=== PATIENT | male | born 1940 | race Caucasian/White ===

== ENCOUNTER 2016-08-21 12:48 | Inpatient (IN) | payer OTHER, SELFPAY ==
--- NOTE | ~2016-08-21 | CN ---
Consultation Report [facility] [address] [place]. [address] NAME: LYNNE REED : 40 STATUS : ADM IN [facility]#: [id number] AGE: 76 ADM/REG DATE : 08/21/16 MR#: [id number] REPORT SERV DATE: 08/23/16 DICTATED BY: TIFFANIE PITTMAN DATE: 08/22/16 REPORT STATUS : Draft TRANSCRIBED BY: MODL DATE: 08/22/16 CONSULTATION REPORT DATE OF CONSULTATION: Dear Dr. Desouza: Thank you for requesting my opinion regarding evaluation and management of Mr. Lynne Reed who has acute hypoxic hypercapnic respiratory failure and acute exacerbation of COPD. Mr. Reed is a 76-year-old gentleman with a significant past medical history of coronary artery disease, congestive heart failure, chronic kidney disease, and COPD, who presented to [facility] with a several week history of worsening shortness of breath, dyspnea, on exertion, chest tightness, productive cough with yellow to white sputum and a fever of 100.4 degrees. He presented to [facility] and then transferred here to [facility] for further care. On his clinical course, he has been complicated by acute on chronic renal failure and volume overload. Mr. Reed is unable to provide a history due to his altered mental status from hypercapnic hypoxic respiratory failure. REVIEW OF SYSTEMS: Unable to obtain due to patient's altered mental status. ALLERGIES: NO KNOWN DRUG ALLERGIES. HOME MEDICATIONS: Reviewed and located in the paper chart. PAST MEDICAL HISTORY: 1. Diabetes. 2. Hypertension. 3. Hyperlipidemia. 4. Former tobacco abuse, quit in 1996, has smoked since he was a child. 5. Emphysema. 6. Anemia. 7. Chronic kidney disease. PAST SURGICAL HISTORY: 1. Coronary artery bypass graft surgery by Dr. Hernandes at [place] on 11/25/2007. 2. [employer] pacemaker placed in 2010. 3. Gallbladder surgery in 2011. 4. Cataract surgery in 2005. 5. Appendectomy. SOCIAL HISTORY: The patient lives in [place]. He has been for 57 years. Four children alive and well. He is retired. His smoking history is long, when he was child and quit in 1996. There is no history of alcohol or illicit drug abuse. Consultation Report [place] [id number] [place]. [address] NAME: LYNNE REED : 40 STATUS : ADM IN PAT#: [id number] AGE: 76 ADM/REG DATE : 08/21/16 MR#: [id number] REPORT SERV DATE: 08/23/16 DICTATED BY: TIFFANIE PITTMAN DATE: 08/22/16 REPORT STATUS : Draft TRANSCRIBED BY: MODL DATE: 08/22/16 FAMILY HISTORY: Coronary artery disease. PHYSICAL EXAMINATION: Vital SIGNS: Afebrile, T current 97.4, pulse of 64, respiratory rate of 19, 3 L on BiPAP 94%. Blood pressure 153/67. GENERAL: Altered mental status and mild respiratory distress. Still on BiPAP but appears to be maintaining excellent volumes. HEENT: Normocephalic, atraumatic. Pupils are equal, round, and reactive to light and accommodation. Posterior oropharynx is clear. NECK: No JVD. No LAD. Trachea midline. CARDIOVASCULAR: Regular rate and rhythm. S1, S2 present. LUNGS: Diminished breath sounds bilaterally. ABDOMEN: Nontender, nondistended. Soft. Positive bowel sounds. EXTREMITIES: No clubbing, cyanosis, or edema. SKIN: No new rashes, lesions, or ulcers. PSYCHIATRIC: Unable to assess due to patient's altered mental status. NEUROLOGIC: Moving all four extremities. LABORATORY DATA: White count of 7.8, hemoglobin of 11, and platelet count of 143. Procalcitonin of 0.73. Uremia with a BUN of 111, creatinine of 4.11, pH is 7.16, PaCO2 of 76, PaO2 of 72. IMAGING: Chest x-ray on 08/21/2016 was personally reviewed by me. Mild cardiomegaly with CABG pacemaker. No acute process demonstrated. ASSESSMENT AND PLAN: Mr. Lynne Reed is an unfortunate 76-year-old gentleman with significant past medical history of coronary artery disease, status post bypass, heavy tobacco abuse, and clinical chronic obstructive pulmonary disease who presents to [facility] with several weeks history of worsening shortness of breath. The patient was evaluated in [place] and transferred and found to have severe hypoxic hypercapnic respiratory failure requiring continuous BiPAP and acute on chronic kidney failure with profound uremia and a creatinine now at 4.11. The patient's hypercapnic hypoxic respiratory failure is likely multifactorial due to the followin. Acute exacerbation of chronic obstructive pulmonary disease. 2. Acute on chronic kidney disease. 3. Uremia. 4. Metabolic encephalopathy. 5. Low grade heart failure. RECOMMENDATIONS: Summary of my recommendations are as follows: 1. Transfer x2. 2. Head of bed greater than 30. 3. DC Dulera. Consultation Report [place] [facility] [address] [place]. [address] NAME: LYNNE REED : 40 STATUS : ADM IN PAT#: [id number] AGE: 76 ADM/REG DATE : 08/21/16 MR#: [id number] REPORT SERV DATE: 08/23/16 DICTATED BY: TIFFANIE PITTMAN DATE: 08/22/16 REPORT STATUS : Draft TRANSCRIBED BY: JAEL DATE: 08/22/16 4. Brovana 15 mcg nebulization b.i.d. 5. Pulmicort 1 mg nebulization b.i.d. 6. DuoNeb q.4 h. scheduled and q.2h p.r.n. 7. Check ABG. 8. DC Dilaudid. 9. Sputum smear and culture. 10.Precedex to RASS of 0 p.r.n. for agitation. 11.Check chest x-ray AP stat. 12.If the patient fails BiPAP therapy, patient will likely need to be on critical care support and intubation. Thank you for allowing me to participate in Mr. Poli archer. BLU/JAEL Tiffanie Pittman M.D. / [id number] CC: Sammi Nettles
--- NOTE | ~2016-08-21 | CN ---
Consultation Report [facility] [address] [place]. [address] NAME: NOHEMI REED : 40 STATUS : ADM IN [facility]#: [id number] AGE: 76 ADM/REG DATE : 08/21/16 MR#: [id number] REPORT SERV DATE: 08/21/16 DICTATED BY: DATE: REPORT STATUS : Draft TRANSCRIBED BY: MODL DATE: 08/21/16 DATE OF CONSULTATION: REASON FOR CONSULTATION: Acute kidney injury. HISTORY OF PRESENT ILLNESS: Mr. Reed is a 76-year-old white male with known CKD, stage 3, followed by Dr. Winter of [facility], and it looks as though he has a baseline creatinine around 2. Per the records in the chart, in May of 2016, he saw his PCP and his creatinine was 2. He had recently been in the hospital and had to be diuresed at that point. He presented to the hospital at [facility] two days ago with increasing shortness of breath, wheezing, congestion per the at bedside. He was having fevers and some sputum production without color. No increase in his edema. In fact, he had lost some weight recently. He had been having some urinary difficulties, and he does have BPH, has not seen a urologist, has urinary hesitancy. No significant swelling. Shortness of breath is no better. Dyspnea on exertion no better. No chest pain, tightness, or pressure. He was transferred here for worsening renal function. He was diuresed in the hospital at [facility]. Creatinine today is at 3.87 with BUN of 103 and sodium is down to 129. Chest x-ray is negative, but on physical exam, he has significant wheezing with bilateral crackles. PAST MEDICAL HISTORY: CKD stage 3; diabetes with neuropathy; hypertension; BPH; coronary artery disease, status post bypass in 2007 at [place]; anemia; hyperlipidemia; hypothyroidism; degenerative joint disease; gout; osteoarthritis; ventricular tachycardia with AICD placement. FAMILY MEDICAL HISTORY: No end-stage renal disease. SOCIAL HISTORY: He is , lives with . Quit using cigarettes in 1996. No alcohol or illicit drug use. ALLERGIES: NONE. MEDICATIONS: I do not see his current medicine list. I did review the list from his physician's office from May though and he had been on Lasix. They had taken him off metolazone. REVIEW OF SYSTEMS: A 12-point review of systems was obtained and negative with the exception of that in the HPI. PHYSICAL EXAMINATION: VITAL SIGNS: Temp 98.6, blood pressure 173/71, pulse 65, respiratory rate 20, and O2 saturation is 97%. GENERAL: This is an ill-appearing elderly white male. He is awake, alert, and oriented, answers questions appropriately. He is hard of hearing. Consultation Report [address] [place]. [address] NAME: NOHEMI REED : 40 STATUS : ADM IN PAT#: [id number] AGE: 76 ADM/REG DATE : 08/21/16 MR#: [id number] REPORT SERV DATE: 08/21/16 DICTATED BY: DATE: REPORT STATUS : Draft TRANSCRIBED BY: JAEL DATE: 08/21/16 HEENT: Normocephalic and atraumatic. Conjunctivae clear. Sclerae anicteric. Pupils are equal and round. Oral mucosa is moist. NECK: Supple. Carotids are brisk. Neck veins flat. No lymphadenopathy. LUNGS: Respirations are even, slightly labored. He has bilateral wheezing with crackles also noted. HEART: Rate is regular. I did not hear any murmur, rub, or gallop. ABDOMEN: Soft and nontender. Bowel sounds active. No masses. No hepatosplenomegaly. No bruits. No CVA tenderness. BACK: Within normal limits extremities. No edema, cyanosis, or clubbing. SKIN: Warm, dry, and intact. No unusual rash or skin lesions. NEURO EXAM: No focal deficits. Mood and affect, pleasant and appropriate. PERTINENT LABS AND X-RAYS: Urinalysis: 100 mg/dL of protein on dipstick, moderate amount of blood. On microscopic exam, he has 25 red blood cells per high-powered field. Lactate 0.6, BNP is 581. Sodium 129, potassium 5.2, chloride 96, CO2 of 24, BUN of 103, creatinine of 3.87. Calcium of 8.2, albumin of 3.1, and LFTs are unremarkable. Troponin 0.04. WBC 6.2, H and H of 11 and 34, and platelets 142,000. IMPRESSION: 1. Acute kidney injury. 2. Chronic kidney disease, stage 3-4. 3. Chronic obstructive pulmonary disease exacerbation. 4. Acute respiratory failure. 5. Diabetes. 6. Hypertension. 7. Hyponatremia. PLAN/RECOMMENDATIONS: Acute kidney injury in setting of probable acute exacerbation of COPD, now with acute respiratory failure. He is hypoxic and hypercarbic. May need to be put on BiPAP. Would not give IV fluids with current respiratory status. I do think he is probably a little intravascularly depleted. We will let him drink IV fluids and not give any. Follow I's and O's and labs and follow along with you. Thank you for the consultation. CELINE/JAEL ANNE MARIE Parsons / [id number]
--- NOTE | ~2016-08-21 | HP ---
History And Physical [place] [id number] [place]. [address] NAME: NOHEMI REED : 40 STATUS : ADM IN [facility]#: [id number] AGE: 76 ADM/REG DATE : 08/21/16 MR#: [id number] REPORT SERV DATE: 08/22/16 DICTATED BY: KELBY CUNNINGHAM DATE: 08/21/16 REPORT STATUS : Draft TRANSCRIBED BY: MODYeni DATE: 08/21/16 DATE OF ADMISSION: 08/21/2016 HISTORY OF PRESENT ILLNESS: Mr. Reed is a 76-year-old white male patient who was transferred here from [facility]. When I spoke with the physician at [facility], Dr. Carvajal, who saw him at [place] today, tells me that this is a 76-year-old white male patient who was admitted for shortness of breath. His chest x-ray did not show any acute infiltrate even though there was a questionable left lower lobe pneumonia. The patient has been treated with antibiotics, but in the meantime, the patient also developed worsening renal function with a creatinine of 3.1 and hyponatremia with a sodium of 127 that was noted today. Hence, the patient is being transferred here for worsening renal function/MIKE. Dr. Carvajal also told me that the patient has a pacemaker placed for probably a sick sinus syndrome and is being followed by Dr. Morris. When the patient arrived at bedside, I examined the patient and he appears to be mildly lethargic even though he is able to answer most of my questions fairly appropriately. Even though he is lethargic, he is oriented with place and person even though he is mildly confused with time. His skin and mucous membranes appear a little dry. His vital signs upon arrival show that his blood pressure is 131/60, pulse is 65 per minute, temperature afebrile, and oxygen saturation 92% on 3 L. Hence, most of the history was obtained some from the patient and some from his . SOCIAL HISTORY: The patient does not smoke or drink or do any drugs. He lives with his . PAST MEDICAL HISTORY: Significant for hypertension, chronic kidney disease, COPD, hypothyroidism, GERD, unspecified cardiac arrhythmia, diabetes which is controlled with medications by mouth, mild COPD, and hypercholesterolemia. PAST SURGICAL HISTORY: Includes CABG in 2007 and a pacer/defibrillator placed in 2010. The patient has also had a laparoscopic cholecystectomy before. ALLERGIES: THE PATIENT IS ALLERGIC TO LATEX. HOME MEDICATIONS: Include Xanax 0.5 mg p.o. b.i.d., Prilosec 20 mg p.o. daily, levothyroxine 25 mcg p.o. daily, amlodipine 10 mg p.o. daily, mexiletine 150 mg p.o. b.i.d., aspirin 81 mg once a day, Lasix 40 mg once a day, Lipitor 20 mg once a day, [place] 5/325 one p.o. b.i.d. p.r.n., glipizide 5 mg p.o. b.i.d., fenofibrate 160 mg p.o. daily, Coreg 12.5 mg p.o. b.i.d., Augmentin that was supposed to be taken all the way until 08/22/2016, and albuterol sulfate p.r.n. for shortness of breath for his COPD. PHYSICAL EXAMINATION: History And Physical [address] [address] NAME: NOHEMI REED : 40 STATUS : ADM IN [facility]#: [id number] AGE: 76 ADM/REG DATE : 08/21/16 MR#: [id number] REPORT SERV DATE: 08/22/16 DICTATED BY: KELBY CUNNINGHAM DATE: 08/21/16 REPORT STATUS : Draft TRANSCRIBED BY: JAEL DATE: 08/21/16 GENERAL: The patient is mildly lethargic, but arousable and is able to answer most questions appropriately. He, however, appears very tired and is not tachypneic, but does have prolonged expiration with audible wheezing. VITAL SIGNS: Blood pressure is 131/60, pulse is 65 per minute, temperature afebrile, and oxygen saturation 92% on 3 L. HEENT: Skin and mucous membranes appear a little dry. NECK: There is no JVD. CARDIOVASCULAR: S1, S2 appreciated. At this time, I did appreciate sinus rhythm. There may be a few PVCs or extra beats that I noted in between S1, S2. RESPIRATORY: The patient has diffuse rhonchi appreciated all over the lung scott. I could not appreciate any significant crackles in the upper lobes, but there are some crackles appreciated in the lower lobes of the lung scott. These do not clear with coughing. ABDOMEN: Soft, nontender, nondistended. Bowel sounds are appreciated. No hepatosplenomegaly noted. EXTREMITIES: There is no pedal edema. Pedal pulses are felt in both lower extremities. NEUROLOGICAL: No acute deficits. MUSCULOSKELETAL: No acute swelling or redness in any of the major joints. PSYCHIATRIC: Mild lethargy noted because of his above conditions. LABORATORY DATA: I do not have absolutely any labs on this patient as no records from [place] have been arrived yet with the patient. So I had to order all labs stat and here are the labs that I have and I have ordered stat. His CBC shows a WBC count of 6.2, hemoglobin 11.3, hematocrit 34.3, platelet count of 142. His BNP is elevated at 581, lactate is normal at 0.6. Comprehensive metabolic profile shows a sodium of 129 which is low as the physician mentioned at [place] today, potassium is 5.2, BUN is 103, creatinine is 3.8, much higher than what was mentioned to me this morning. Glucose is 258. LFTs are normal. Troponin I is 0.04 which is normal. Procalcitonin is 0.4. Urinalysis shows hazy urine and essentially with moderate amount of blood, but no definitive infection. King catheter has been inserted and urine was obtained after insertion of King, so this could be trauma from King. I ordered a King catheter placement as the patient does have difficulty urinating probably from BPH and also we need strict ins and outs in this patient. Chest x-ray portable shows that he has mild cardiomegaly with CABG and pacer in place. No acute process otherwise demonstrated radiographically. Arterial blood gases show a pH of 7.1, a pCO2 of 62, PO2 of 63, bicarb 23.4, O2 sats 91.2 on 32% inspired oxygen or 4 L of oxygen. ASSESSMENT: My assessment in this gentleman is: 1. Acute exacerbation of chronic obstructive pulmonary disease. 2. Volume overload, probably secondary to acute kidney injury on chronic kidney disease, stage 4. 3. Diabetes mellitus. 4. Severe metabolic acidosis, probably secondary to acute kidney injury. 5. Other problems that are stable include coronary artery disease, status post coronary artery bypass grafting. History And Physical [place] [id number] [place]. [address] NAME: NOHEMI REED : 40 STATUS : ADM IN PAT#: [id number] AGE: 76 ADM/REG DATE : 08/21/16 MR#: [id number] REPORT SERV DATE: 08/22/16 DICTATED BY: KELBY CUNNINGHAM DATE: 08/21/16 REPORT STATUS : Draft TRANSCRIBED BY: MODL DATE: 08/21/16 6. Status post pacer placement. 7. Diabetes mellitus. 8. Chronic kidney disease, stage 3 to 4. PLAN: 1. To admit the patient to [address] [place] [address] under cardiac telemetry and obtain both Renal consult today and Cardiology consult today. 2. I will go ahead and start him on IV Ringer's lactate and given an amp of bicarb right now. We will give supportive treatment with oxygen. We will also give him breathing treatments with DuoNebs every four hours. 3. We will start him on IV Levaquin for now and watch to see later on. Levaquin can probably be discontinued within 24 to 48 hours if he stabilizes better. 4. We will give him just one dose of IV Bumex 1 mg and then let Nephrology handle further fluid balance in this patient. I have asked the nurse to insert a King catheter in this patient to measure strict input and output, and further recommendations per Cardiology and Nephrology. OPAL/JAEL Kelby Cunningham M.D. / [id number] CC: Kelby Cunningham M.D.
--- NOTE | ~2016-08-21 | DS ---
Discharge Summary [facility] [address] [place]. [address] NAME: NOHEMI REED : 40 STATUS : ADM IN [facility]#: [id number] AGE: 76 ADM/REG DATE : 08/21/16 MR#: [id number] REPORT SERV DATE: 08/29/16 DICTATED BY: HANDY DESOUZA DATE: 08/28/16 REPORT STATUS : Draft TRANSCRIBED BY: MODL DATE: 08/28/16 ADMISSION DATE: 08/21/2016 DISCHARGE DATE: 08/28/2016 CONSULTANTS: 1. Pancho Cazares M.D., Cardiology. 2. Tho Reyes M.D., Pulmonary. 3. Mike Cantrell M.D., Nephrology. DISCHARGE DIAGNOSES: 1. Acute on chronic hypercapnic hypoxic respiratory failure. 2. Acute exacerbation of chronic obstructive pulmonary disease, suspected viral infection. 3. Acute kidney injury superimposed on stage 4 chronic kidney disease and requiring temporary hemodialysis. 4. Hypertension. 5. Sick sinus syndrome with history of ventricular tachycardia and automatic implantable cardioverter-defibrillator pacemaker. 6. Coronary artery disease with bypass in 2007 with current left ventricular ejection fraction of 50% with mild diastolic dysfunction. Mild LVH. Mild dilatation of the right ventricle and decreased right ventricular ejection fraction with aortic valvular sclerosis, but no stenosis. 7. Transient thrombocytopenia, resolved. 8. Hypothyroidism. 9. History of B12 deficiency. 10.Anemia of chronic disease. 11.History of gout. 12.Generalized anxiety disorder. 13.Gastroesophageal reflux disease. 14.Mildly diminished hearing. HISTORY: This patient was recently in the hospital at [facility] with report of pneumonia, went home and went back to [facility] approximately 08/18/2016, was diagnosed with strep throat and given an antibiotic but still had weakness, shortness of breath, was readmitted, had report of cough and yellow sputum with low-grade fever, and the patient then was requested for transfer to [facility]. The patient also was noted to have acute kidney injury while he was at [facility]. The patient was transferred to the cardiac telemetry floor. Imaging on admission included a chest x-ray showing mild cardiomegaly with evidence of previous bypass and pacer device. Echocardiogram on 08/21/2016 showed left atrial size 4.5 cm, left ventricular ejection fraction of 50%, mild LVH, moderate diastolic dysfunction, mild right ventricular enlargement with decreased right ventricular ejection fraction. Aortic valvular sclerosis without stenosis. Cardiac troponin was normal. B-natriuretic peptide was 581.1. Because of his acute kidney injury, the patient also had a renal arterial Doppler showing some right kidney renal artery stenosis. Renal ultrasound, otherwise, did not show any obstructive changes. The patient had some asymmetric atrophy suggesting old pyelonephrotic scarring; Discharge Summary [address] [address] NAME: NOHEMI REED : 40 STATUS : ADM IN PAT#: [id number] AGE: 76 ADM/REG DATE : 08/21/16 MR#: [id number] REPORT SERV DATE: 08/29/16 DICTATED BY: HANDY DESOUZA DATE: 08/28/16 REPORT STATUS : Draft TRANSCRIBED BY: JAEL DATE: 08/28/16 nonobstructive kidney stone, left kidney and right kidney; cyst in the inferior pole left kidney that looked benign. The patient was given some IV fluids cautiously, but his renal function did not improve, so we asked Nephrology. Dr. Mike Cantrell saw the patient. His Cardiology team, Dr. Cazares and associates saw the patient and they had his pacer ICD interrogated, no particular problems noted with device. The patient had urine strep and Legionella antigens that were nonreactive and influenza A and B were negative. Procalcitonin remained in the normal range, not elevated at all. The patient was given steroids. The patient had gradually worsening respiratory discomfort remaining hypercapnic and required oxygen supplementation. We, therefore, put him on BiPAP 16/5 with FiO2 of 32% and changes steroids to parenteral. Pulmonary, Dr. Reyes, saw the patient, had him on Brovana and Pulmicort. As the patient's renal function continued to worsen, his potassium climbed up to 5.8. His highest creatinine was 4.12. I gave him sodium bicarbonate, calcium gluconate, and Kayexalate for his potassium and Nephrology felt that he needed to have PermCath and dialysis. The patient underwent dialysis, had significant amount of fluid removed. Had a very dramatic improvement, thereafter. Did not need any more dialysis and his renal function recovered so that by discharge, his creatinine is 1.58. His PermCath was removed from his right chest. He is ambulatory. He is off oxygen. Blood cultures with no growth. Sputum was a poor specimen, so it was rejected. The suspicion is that he had an acute viral infection that exacerbated his COPD and also put stress on his renal function and possibly from diuretics he got volume depleted and had acute kidney injury. His renal function thank goodness has responded and is back to his baseline. We are arranging for home health nursing and physical therapy. He is to follow up with his primary care physician, Dr. Jhon Carvajal within the next week and to follow up with his own gameplay engineer, Dr. Winter in the [place] area within the next two weeks and with Cardiology, Dr. Morris in three weeks. DISCHARGE MEDICATIONS: Include Norvasc 10 mg daily; aspirin 81 mg daily; Lipitor 20 mg daily; Coreg 12.5 mg twice a day; fenofibrate 160 mg daily; levothyroxine 25 mcg daily (TSH here was 1.21); Prilosec 20 mg daily; albuterol handheld or nebulized q.4 hours p.r.n. shortness of breath; Xanax 0.5 mg b.i.d. p.r.n. anxiety, which is a chronic medicine for him; [place] 5/325 b.i.d. p.r.n. pain, which is a chronic medicine for him; glipizide 5 mg half tablet twice a day, his A1c was 6.9. He was not eating that well initially here, so we reduced this dose for now. Vitamin B12, he takes 1000 mcg injected every 30 days. Mexitil 150 mg p.o. b.i.d. For now, we have discontinued his Lasix 40 mg daily that he used to take. I spent 41 minutes today with the patient and with his and with discharge planning. Discharge Summary [address] [place]. [address] NAME: NOHEMI REED : 40 STATUS : ADM IN [facility]#: [id number] AGE: 76 ADM/REG DATE : 08/21/16 MR#: [id number] REPORT SERV DATE: 08/29/16 DICTATED BY: HANDY DESOUZA DATE: 08/28/16 REPORT STATUS : Draft TRANSCRIBED BY: JAEL DATE: 08/28/16 RSG/MODL Handy Desouza M.D. / [id number] CC: Sammi Nettles M.D. Merhaf Zeino, MD
--- NOTE | ~2016-08-21 | DS ---
Discharge Summary [facility] [address] [place]. [address] NAME: NOHEMI REED : 40 STATUS : DIS IN PAT#: [id number] AGE: 76 ADM/REG DATE : 08/21/16 MR#: [id number] REPORT SERV DATE: 08/31/16 DICTATED BY: KELBY CUNNINGHAM DATE: 08/30/16 REPORT STATUS : Draft TRANSCRIBED BY: MODL DATE: 08/30/16 ADMISSION DATE: 08/21/2016 DISCHARGE DATE: 08/30/2016 ADDENDUM: For a detailed discharge summary, please look at Dr. Desouza's discharge summary that was dictated on 08/28/2016. The patient was supposed to go home on 08/29/2016 patients transporter, but as the patient continued to ooze blood from the site where his PermCath was placed for temporary dialysis, the patient's discharge was held. As we could not stop his bleeding with pressure dressings, I had to re-consult Interventional Radiology, so that the patient could go back and probably get a suture or stitch in the area to stop the bleeding. The patient was immediately taken to Interventional Radiology and over there, they thought that it is better to place a sealant/adhesive at the area where the patient was bleeding rather than place a stitch as this was more likely to rupture and bleed again. Hence, the patient received more adhesive patch and also basically got the area fixed without a stitch but adhesives. This actually has stopped the bleeding and in the last 24 hours, the patient has had no more oozing or bleeding at the site where he had the PermCath. It is to be noted that the patient had a PermCath on the right side of the chest because he had to have temporary hemodialysis done. Again for details, please refer to the discharge summary dictated by Dr. Desouza. Hence, the patient is being sent home on 08/30/2016 after his bleeding has completely stopped and has been advised to follow up with his residence leasing agent within the next three to four weeks as scheduled. This is because the patient has chronic kidney disease, stage IV. In addition to that, the patient has also been advised to follow up with Dr. Morris, his administration physician within the next three to four weeks also scheduled as before as the patient also has chronic diastolic heart failure. On the day of discharge, which is 08/30/2016, the patient's CBC shows WBC of 5.8, hemoglobin 9.7, hematocrit 28.2, which are both stable at this time. Platelet count is 150. Electrolyte profile shows sodium 142, potassium 4, BUN is 48, creatinine is 1.5, which is pretty much his baseline. It is to be noted the patient has CKD stage IV. The patient is being discharged with the medications exactly as dictated in Dr. Desouza's discharge summary and no change has been made so far. The patient is stable for discharge, and I have spent about 35 minutes in coordinating discharge care of this patient including [id number] encounter and summarizing this discharge. OPAL/JAEL Kelby Cunningham M.D. / [id number] CC: Kelby Cunningham M.D. Discharge Summary [address] [address] NAME: NOHEMI REED : 40 STATUS : DIS IN PAT#: [id number] AGE: 76 ADM/REG DATE : 08/21/16 MR#: [id number] REPORT SERV DATE: 08/31/16 DICTATED BY: KELBY CUNNINGHAM DATE: 08/30/16 REPORT STATUS : Draft TRANSCRIBED BY: MODL DATE: 08/30/16 Jhon Carvajal
--- NOTE | ~2016-08-21 | CN ---
Consultation Report [facility] [address] [place]. [address] NAME: NOHEMI REED : 40 STATUS : ADM IN [facility]#: [id number] AGE: 76 ADM/REG DATE : 08/21/16 MR#: [id number] REPORT SERV DATE: 08/22/16 DICTATED BY: WON FINNEGAN DATE: 08/21/16 REPORT STATUS : Draft TRANSCRIBED BY: JAEL DATE: 08/21/16 DATE OF CONSULTATION: 08/21/2016 PRIMARY NECK CUTTER: Marco Morris M.D. CHIEF COMPLAINT: Shortness of the breath. REASON FOR CONSULTATION: Shortness of the breath. SOURCE: The patient and his chart. HISTORY OF PRESENT ILLNESS: Mr. Reed is a very pleasant, 76-year-old, white man, who has coronary artery disease, congestive heart failure, and chronic kidney disease and is followed by my partner, Dr. Morris. He was in his usual state of health until the last few weeks, when he has had increasing shortness of breath including wheezing, coughing, and producing white to yellow sputum, fever to 100.4 degrees Fahrenheit. Five days ago, he "could not breathe" and went to the hospital at [facility]. He was transferred for further care to [facility] today. He has not had any chest pain. No palpitations. He has had some swelling of the feet. He has not been getting better at [facility]. REVIEW OF SYSTEMS: All other systems are negative. ALLERGIES: NO KNOWN DRUG ALLERGIES. MEDICATIONS: As per his transfer MAR, included albuterol, alprazolam, amlodipine, amoxicillin, aspirin, atorvastatin, carvedilol, vitamin B12, fenofibrate, Lasix, GluControl, hydrocodone, levothyroxine, Mexitil, Prilosec. CARDIAC RISK FACTORS: Including diabetes, hypertension, cholesterol, former tobacco, quit in . Denies family history. PAST MEDICAL HISTORY: Significant for coronary disease status post coronary bypass grafting in 11/25/[address] [place] [address] Hernandes, reportedly to 5 vessels. In May 2011, he had a pacemaker placement with a [employer] device. There was an ICD as well according to his , and gallbladder surgery in 2011, cataract surgery in 2005 status post appendectomy, chronic kidney disease, emphysema, anemia. SOCIAL HISTORY: The patient lives in [place]. He is for the past 57 years. He has 4 children, alive and well. He is retired. FAMILY HISTORY: Negative for coronary disease at young age. PHYSICAL EXAMINATION: GENERAL: He is a well-developed, well-nourished, elderly white man, appearing acutely and Consultation Report [address] [address] NAME: NOHEMI REED : 40 STATUS : ADM IN [facility]#: [id number] AGE: 76 ADM/REG DATE : 08/21/16 MR#: [id number] REPORT SERV DATE: 08/22/16 DICTATED BY: WON FINNEGAN DATE: 08/21/16 REPORT STATUS : Draft TRANSCRIBED BY: JAEL DATE: 08/21/16 chronically ill. VITAL SIGNS: Blood pressure is 131/60, pulse 65, temperature 97.4, weight is 87.7 kilos, height is 5 feet 9 inches. HEENT: Sclerae anicteric. Lips without cyanosis. Carotids 2+ and symmetrical. No bruits. No JVD. No thyromegaly. LUNGS: Wheezes and rhonchi throughout. Fair movement. No use of accessory muscles. HEART: Regular rate and rhythm without murmur, gallop, or rub. ABDOMEN: Positive bowel sounds. Soft, nontender. EXTREMITIES: Pulses 2+ and symmetrical. No cyanosis, clubbing, or edema. BACK: No CVA tenderness. MUSCULOSKELETAL: Good tone. NEURO: Alert and oriented x3. EKG is pending at this time. LABORATORY EXAMINATION: Included a chest x-ray, which revealed mild cardiomegaly, coronary bypass grafting, pacing device in place. No acute process. Arterial blood gas, 7.19, 62, 63, 91%. The lactate is 0.6. BNP level is 581, the white count 6.2, hemoglobin 11.3, hematocrit 34.3, platelets 142,000. Urinalysis: Specific gravity 1.014, pH 5.0, protein 100, dip negative except moderate blood. RBC 25, WBC 0, bacteria rare. The sodium is 129, potassium 5.2, chloride 96, CO2 24, BUN 103, creatinine 3.87, GFR 14, glucose 258, troponin of 0.04, procalcitonin of 0.48. IMPRESSION: 1. Hypercapnic respiratory failure. 2. Suspect bronchitis. 3. Chronic obstructive pulmonary disease. 4. Acute kidney injury on chronic kidney disease. 5. Mild congestive heart failure with chronic systolic dysfunction. 6. Last LVEF of 50% by echo today. 7. Aortic sclerosis without stenosis. 8. Coronary artery disease, status post coronary bypass grafting. 9. Status post ICD placement. 10.History of ventricular tachycardia. 11.Hyperlipidemia. 12.Diabetes mellitus. 13.History of COPD. RECOMMENDATIONS: 1. Nephrology consultation. 2. Check post void residual, consider King catheter. 3. Check renal artery ultrasound and renal ultrasound. 4. Consider BiPAP or CPAP. 5. Consider Pulmonary consultation, inhale beta agonist and steroids. 6. Would avoid IV fluids for now. 7. Check 12-lead EKG. 8. [employer] ICD check. Consultation Report [address] [place]. [address] NAME: NOHEMI REED : 40 STATUS : ADM IN PAT#: [id number] AGE: 76 ADM/REG DATE : 08/21/16 MR#: [id number] REPORT SERV DATE: 08/22/16 DICTATED BY: WON FINNEGAN DATE: 08/21/16 REPORT STATUS : Draft TRANSCRIBED BY: JAEL DATE: 08/21/16 9. Echo already done, see report below. 10.Technically difficult study. Normal left ventricular systolic function with low normal LV systolic function, LVEF 50%, mild concentric LVH, moderate diastolic dysfunction, mild RV enlargement with decreased systolic function, aortic valve sclerosis without stenosis. No evidence of apical thrombus with the use of intravenous contrast. NII/JAEL Won Finnegan M.D. / [id number] CC: Celena Willis M.D.
[~2016-08-21 12:48] MED LIST: ACTOS30 PO; ASAB PO; K-TABS10 MEQ PO; L40 PO; LOFIB160 PO; LOP25 PO; MEVACOR40 MG PO; MEXILETINE150 MG OR; NEUR400 PO; NORV5 PO; PACERONE200 MG PO; PLAVIX PO; PRILO PO; PROAIR HFA INH; PROCRIT10 SC; T3 PO; VITAMIN B-121000 MC1 SQ; X5 PO; Z5 PO; ZANTAC300 MG PO; ZAROX2.5B PO
[2016-08-21 14:03] LABS: INSTRUMENT SERIAL # 8083; PCO2 (CO2 TENSION) 62 MMHG (35-45); pH 7.19 (7.37-7.43)
[2016-08-21 14:04] LABS: ALLENS TEST Pos; BE (BASE EXCESS) -5.5 MEQ/L (0 +/- 2.5); CARBOXYHEMOGLOBIN 0.5 % (0-3); DEVICE NC; HCO3 (ACTUAL BICARBONATE) 23.4 MEQ/L (23-27); HEMOBLOGIN CONTENT 12.2 G/DL (14-18); METHEMOGLOBIN 0.2 % (0-3); O2 CONTENT 15.6 VOL% (18-24); PO2 (O2 TENSION) 63 MMHG (79-93); SAMPLE Arterial
[2016-08-21 15:03] LABS: BASOPHILS 0.2 %; BASOPHILS ABSOLUTE 0.01 10/3/uL (0.0-0.16); EOSINOPHILS 0 %; HEMOGLOBIN 11.3 g/dL (13.6-17.8); IMMATURE GRANULOCYTES 0.6 %; IMMATURE GRANULOCYTES ABSOLUTE 0.04 10/3/uL (0.0-0.11); LYMPHOCYTES 2.7 %; LYMPHOCYTES ABSOLUTE 0.17 10/3/uL (0.67-4.30); MEAN CORPUS HGB CONC 32.9 g/dL (32.0-36.0); MEAN CORPUSCULAR HEMOGLOB 29.4 pg (26.0-34.0); MEAN CORPUSCULAR VOLUME 89.3 fL (80-100); MEAN PLATELET VOLUME 13.5 fL (9.2-13.0); MONOCYTES 1.8 %; MONOCYTES ABSOLUTE 0.11 10/3/uL (0.21-1.20); NEUTROPHILS 94.7 %; NEUTROPHILS ABSOLUTE 5.88 10/3/uL (2.02-8.40); PLATELET COUNT 142 10/3/uL (150-400); RBC DISTRIBUTION WIDTH 15.7 % (12.0-16.0); RED CELL COUNT 3.84 10/6/uL (4.7-6.1)
[2016-08-21 15:09] LABS: HEMATOCRIT 34.3 % (40.0-51.0); MANUAL DIFF NO %; WHITE BLOOD CELLS 6.2 10/3/uL (4.5-10.5)
[2016-08-21 15:17] LABS: A/G RATIO 0.8 (0.7-1.9); ALBUMIN 3.1 G/DL (3.5-5.0); ALKALINE PHOSPHATASE 47 U/L (45-117); CALCIUM, SERUM 8.2 MG/DL (8.5-10.4); CHLORIDE, SERUM 96 MMOL/L (96-112); CO2 (CARBON DIOXIDE) 24 MMOL/L (24-34); GLOBULIN 3.7 G/DL (2.5-4.1); POTASSIUM, SERUM 5.2 MMOL/L (3.5-5.3); SGOT(AST) 46 U/L (5-40); SGPT(ALT) 32 U/L (5-65); TOTAL BILIRUBIN 0.3 MG/DL (0-1.2); TOTAL PROTEIN 6.8 G/DL (6.0-8.5); TROPONIN I 0.04 NG/ML (<0.05)
[2016-08-21 15:18] LABS: BUN (BLOOD UREA NITROGEN) 103 MG/DL (6-23); CREATININE 3.87 MG/DL (0.70-1.30); GFR AFRICAN AMERICAN 16 ML/MIN (>=60); GFR NON AFRICAN AMERICAN 14 ML/MIN (>=60); GLUCOSE, SERUM 258 MG/DL (60-99); SODIUM, SERUM 129 MMOL/L (135-148)
[2016-08-21 15:27] LABS: WBC (NOT ORDERED) (RFLEX) 0 (0-5)
[2016-08-21 15:42] LABS: ASCORBIC ACID (UR NOT ORDER) NEG (NEG); BILIRUBIN, URINE NEGATIVE (NEG); KETONE, URINE NEGATIVE (NEG); LEUKOCYTE ESTERASE(NOT OR NEG (NEG)
[2016-08-21] MEDS ORDERED: B121000P IM (16:25)
[2016-08-21] MEDS ORDERED: PRILO PO (16:25)
[2016-08-21] MEDS ORDERED: X5 PO (16:25)
[2016-08-21] MEDS ORDERED: HALF81 PO (16:26)
[2016-08-21] MEDS ORDERED: MEXITIL 150 MG150 MG PO (16:26)
[2016-08-21] MEDS ORDERED: NORV10 PO (16:26)
[2016-08-21] MEDS ORDERED: L40 PO (16:26)
[2016-08-21] MEDS ORDERED: VENTOLIN HFA INH (16:26)
[2016-08-21] MEDS ORDERED: LEVOTHYROXIN25 MCG PO (16:26)
[2016-08-21] MEDS ORDERED: GLUCOTROL5 PO (16:27)
[2016-08-21] MEDS ORDERED: LOFIB160 PO (16:27)
[2016-08-21] MEDS ORDERED: LIPITOR20 PO (16:27)
[2016-08-21] MEDS ORDERED: NORCO1 TA1 PO (16:27)
[2016-08-21] MEDS ORDERED: AUG500 PO (16:28)
[2016-08-21] MEDS ORDERED: ALBUTEROL0.083 % INH (16:28)
[2016-08-21] MEDS ORDERED: COREG12 PO (16:28)
[2016-08-21 16:34] LABS: PROCALCITONIN 0.48 ng/mL (<0.5)
[2016-08-22 06:11] LABS: BASOPHILS 0.1 %; BASOPHILS ABSOLUTE 0.01 10/3/uL (0.0-0.16); EOSINOPHILS 0 %; HEMOGLOBIN 11.3 g/dL (13.6-17.8); IMMATURE GRANULOCYTES 0.6 %; IMMATURE GRANULOCYTES ABSOLUTE 0.05 10/3/uL (0.0-0.11); LYMPHOCYTES 3.6 %; LYMPHOCYTES ABSOLUTE 0.28 10/3/uL (0.67-4.30); MANUAL DIFF NO %; MEAN CORPUS HGB CONC 33.2 g/dL (32.0-36.0); MEAN CORPUSCULAR HEMOGLOB 29.7 pg (26.0-34.0); MEAN CORPUSCULAR VOLUME 89.5 fL (80-100); MEAN PLATELET VOLUME 13.2 fL (9.2-13.0); MONOCYTES 2.2 %; MONOCYTES ABSOLUTE 0.17 10/3/uL (0.21-1.20); NEUTROPHILS 93.5 %; NEUTROPHILS ABSOLUTE 7.33 10/3/uL (2.02-8.40); PLATELET COUNT 143 10/3/uL (150-400); RBC DISTRIBUTION WIDTH 15.7 % (12.0-16.0); WHITE BLOOD CELLS 7.8 10/3/uL (4.5-10.5)
[2016-08-22 06:36] LABS: CALCIUM, SERUM 8.1 MG/DL (8.5-10.4); CHLORIDE, SERUM 97 MMOL/L (96-112); CO2 (CARBON DIOXIDE) 24 MMOL/L (24-34); CREATININE 4.11 MG/DL (0.70-1.30); GFR AFRICAN AMERICAN 15 ML/MIN (>=60); GFR NON AFRICAN AMERICAN 13 ML/MIN (>=60); POTASSIUM, SERUM 5.1 MMOL/L (3.5-5.3); SODIUM, SERUM 132 MMOL/L (135-148)
[2016-08-22 06:39] LABS: BUN (BLOOD UREA NITROGEN) 111 MG/DL (6-23); GLUCOSE, SERUM 149 MG/DL (60-99); PHOSPHORUS, SERUM 5.7 MG/DL (2.5-4.5)
[2016-08-22 16:01] LABS: ALLENS TEST Pos; BE (BASE EXCESS) -3.8 MEQ/L (0 +/- 2.5); CARBOXYHEMOGLOBIN 0.5 % (0-3); DEVICE NC; HCO3 (ACTUAL BICARBONATE) 26.4 MEQ/L (23-27); HEMOBLOGIN CONTENT 12.5 G/DL (14-18); INSTRUMENT SERIAL # 8083; METHEMOGLOBIN 0.3 % (0-3); O2 CONTENT 16.3 VOL% (18-24); PCO2 (CO2 TENSION) 76 MMHG (35-45); PO2 (O2 TENSION) 72 MMHG (79-93); SAMPLE Arterial; pH 7.16 (7.37-7.43)
[2016-08-22 16:28] LABS: ALKALINE PHOSPHATASE 40 U/L (45-117); DIRECT BILIRUBIN 0.2 MG/DL (0.0-0.4); SGOT(AST) 45 U/L (5-40); SGPT(ALT) 34 U/L (5-65)
[2016-08-22 16:40] LABS: INDIRECT BILIRUBIN(NOT ORDER) 0.1 MG/DL (0.1-0.9); TOTAL BILIRUBIN 0.3 MG/DL (0-1.2); TOTAL PROTEIN 6.7 G/DL (6.0-8.5)
[2016-08-22 16:51] LABS: PROCALCITONIN 0.37 ng/mL (<0.5)
[2016-08-22 19:40] LABS: ALLENS TEST Pos; BE (BASE EXCESS) -4.4 MEQ/L (0 +/- 2.5); BIPAP 16/5 cm.H2O; CARBOXYHEMOGLOBIN 0.2 % (0-3); HCO3 (ACTUAL BICARBONATE) 23.7 MEQ/L (23-27); INSTRUMENT SERIAL # 8083; METHEMOGLOBIN 0.3 % (0-3); O2 CONTENT 15.8 VOL% (18-24); OPERATOR ID 17370; PCO2 (CO2 TENSION) 58 MMHG (35-45); PO2 (O2 TENSION) 71 MMHG (79-93); SAMPLE Arterial; pH 7.23 (7.37-7.43)
[2016-08-23 05:27] LABS: BASOPHILS 0 %; EOSINOPHILS 0 %; HEMATOCRIT 33.7 % (40.0-51.0); HEMOGLOBIN 11.2 g/dL (13.6-17.8); IMMATURE GRANULOCYTES 1.7 %; IMMATURE GRANULOCYTES ABSOLUTE 0.08 10/3/uL (0.0-0.11); LYMPHOCYTES 4.1 %; LYMPHOCYTES ABSOLUTE 0.19 10/3/uL (0.67-4.30); MEAN CORPUS HGB CONC 33.2 g/dL (32.0-36.0); MEAN CORPUSCULAR VOLUME 90.3 fL (80-100); MONOCYTES 2.6 %; MONOCYTES ABSOLUTE 0.12 10/3/uL (0.21-1.20); NEUTROPHILS 91.6 %; NEUTROPHILS ABSOLUTE 4.19 10/3/uL (2.02-8.40); PLATELET COUNT 143 10/3/uL (150-400); RBC DISTRIBUTION WIDTH 15.8 % (12.0-16.0); RED CELL COUNT 3.73 10/6/uL (4.7-6.1)
[2016-08-23 05:30] LABS: MANUAL DIFF NO %; WHITE BLOOD CELLS 4.6 10/3/uL (4.5-10.5)
[2016-08-23 05:46] LABS: ALBUMIN 2.8 G/DL (3.5-5.0); CALCIUM, SERUM 7.9 MG/DL (8.5-10.4); CHLORIDE, SERUM 97 MMOL/L (96-112); CO2 (CARBON DIOXIDE) 23 MMOL/L (24-34); CREATININE 4.05 MG/DL (0.70-1.30); GFR AFRICAN AMERICAN 16 ML/MIN (>=60); GFR NON AFRICAN AMERICAN 13 ML/MIN (>=60); PHOSPHORUS, SERUM 6.4 MG/DL (2.5-4.5); POTASSIUM, SERUM 5.8 MMOL/L (3.5-5.3); SODIUM, SERUM 133 MMOL/L (135-148)
[2016-08-23 05:51] LABS: BUN (BLOOD UREA NITROGEN) 123 MG/DL (6-23); GLUCOSE, SERUM 179 MG/DL (60-99)
[2016-08-23 06:10] LABS: ALLENS TEST Pos; BE (BASE EXCESS) -4.8 MEQ/L (0 +/- 2.5); CARBOXYHEMOGLOBIN 0.4 % (0-3); HCO3 (ACTUAL BICARBONATE) 23.2 MEQ/L (23-27); HEMOBLOGIN CONTENT 11.5 G/DL (14-18); INSTRUMENT SERIAL # 8083; METHEMOGLOBIN 0.1 % (0-3); O2 CONTENT 15.8 VOL% (18-24); OPERATOR ID 31061; PCO2 (CO2 TENSION) 57 MMHG (35-45); PO2 (O2 TENSION) 102 MMHG (79-93); SAMPLE Arterial; pH 7.23 (7.37-7.43)
[2016-08-23 10:12] LABS: ALLENS TEST Pos; BE (BASE EXCESS) -4.8 MEQ/L (0 +/- 2.5); BIPAP 16/5 cm.H2O; CARBOXYHEMOGLOBIN 0.4 % (0-3); HCO3 (ACTUAL BICARBONATE) 23.2 MEQ/L (23-27); HEMOBLOGIN CONTENT 11.5 G/DL (14-18); INSTRUMENT SERIAL # 8083; METHEMOGLOBIN 0.1 % (0-3); O2 CONTENT 15.8 VOL% (18-24); OPERATOR ID 31061; PCO2 (CO2 TENSION) 57 MMHG (35-45); PO2 (O2 TENSION) 102 MMHG (79-93); SAMPLE Arterial; pH 7.23 (7.37-7.43)
[2016-08-23 14:32] LABS: ALBUMIN 2.9 G/DL (3.5-5.0); BUN (BLOOD UREA NITROGEN) 126 MG/DL (6-23); CALCIUM, SERUM 7.7 MG/DL (8.5-10.4); CHLORIDE, SERUM 95 MMOL/L (96-112); CO2 (CARBON DIOXIDE) 26 MMOL/L (24-34); CREATININE 4.12 MG/DL (0.70-1.30); GFR AFRICAN AMERICAN 15 ML/MIN (>=60); GFR NON AFRICAN AMERICAN 13 ML/MIN (>=60); GLUCOSE, SERUM 191 MG/DL (60-99); PHOSPHORUS, SERUM 6.3 MG/DL (2.5-4.5); POTASSIUM, SERUM 5.1 MMOL/L (3.5-5.3); SODIUM, SERUM 131 MMOL/L (135-148)
[2016-08-23 16:00] LABS: BE (BASE EXCESS) -2.5 MEQ/L (0 +/- 2.5); HCO3 (ACTUAL BICARBONATE) 25.4 MEQ/L (23-27); INSTRUMENT SERIAL # 8083; PCO2 (CO2 TENSION) 58 MMHG (35-45); PO2 (O2 TENSION) 67 MMHG (79-93); pH 7.26 (7.37-7.43)
[2016-08-23 16:01] LABS: ALLENS TEST Pos; CARBOXYHEMOGLOBIN 0.4 % (0-3); DEVICE NC; HEMOBLOGIN CONTENT 11.7 G/DL (14-18); METHEMOGLOBIN 0.2 % (0-3); O2 CONTENT 15.3 VOL% (18-24); SAMPLE Arterial
[2016-08-24 04:13] LABS: ALLENS TEST Pos; BE (BASE EXCESS) -0.8 MEQ/L (0 +/- 2.5); BIPAP 16/5 cm.H2O; CARBOXYHEMOGLOBIN 0.9 % (0-3); HEMOBLOGIN CONTENT 11.3 G/DL (14-18); INSTRUMENT SERIAL # 8083; METHEMOGLOBIN 0.1 % (0-3); O2 CONTENT 15.2 VOL% (18-24); OPERATOR ID 30014; PCO2 (CO2 TENSION) 61 MMHG (35-45); PO2 (O2 TENSION) 84 MMHG (79-93); SAMPLE Arterial; pH 7.27 (7.37-7.43)
[2016-08-24 06:16] LABS: BASOPHILS 0 %; EOSINOPHILS 0 %; HEMATOCRIT 31.5 % (40.0-51.0); HEMOGLOBIN 10.6 g/dL (13.6-17.8); IMMATURE GRANULOCYTES 2.1 %; IMMATURE GRANULOCYTES ABSOLUTE 0.08 10/3/uL (0.0-0.11); LYMPHOCYTES 4.2 %; LYMPHOCYTES ABSOLUTE 0.16 10/3/uL (0.67-4.30); MANUAL DIFF NO %; MEAN CORPUS HGB CONC 33.7 g/dL (32.0-36.0); MEAN CORPUSCULAR HEMOGLOB 29.9 pg (26.0-34.0); MEAN CORPUSCULAR VOLUME 88.7 fL (80-100); MEAN PLATELET VOLUME 12.5 fL (9.2-13.0); MONOCYTES 3.2 %; MONOCYTES ABSOLUTE 0.12 10/3/uL (0.21-1.20); NEUTROPHILS 90.5 %; NEUTROPHILS ABSOLUTE 3.43 10/3/uL (2.02-8.40); PLATELET COUNT 162 10/3/uL (150-400); RBC DISTRIBUTION WIDTH 15.7 % (12.0-16.0); RED CELL COUNT 3.55 10/6/uL (4.7-6.1); WHITE BLOOD CELLS 3.8 10/3/uL (4.5-10.5)
[2016-08-24 06:20] LABS: INTERNATIONAL NORMAL RATI 1.4 UNITS (-); PROTIME (NOT ORD) 16.9 SEC (12.0-14.5)
[2016-08-24 06:42] LABS: ALBUMIN 2.7 G/DL (3.5-5.0); BUN (BLOOD UREA NITROGEN) 132 MG/DL (6-23); CALCIUM, SERUM 7.7 MG/DL (8.5-10.4); CHLORIDE, SERUM 98 MMOL/L (96-112); CO2 (CARBON DIOXIDE) 26 MMOL/L (24-34); CREATININE 3.89 MG/DL (0.70-1.30); GFR AFRICAN AMERICAN 16 ML/MIN (>=60); GFR NON AFRICAN AMERICAN 14 ML/MIN (>=60); GLUCOSE, SERUM 177 MG/DL (60-99); PHOSPHORUS, SERUM 5.8 MG/DL (2.5-4.5); POTASSIUM, SERUM 4.6 MMOL/L (3.5-5.3); SODIUM, SERUM 136 MMOL/L (135-148)
[2016-08-24 09:39] LABS: PROCALCITONIN 0.17 ng/mL (<0.5)
[2016-08-24 09:45] LABS: INFLUENZA A SCREEN NEGATIVE (NEGATIVE); INFLUENZA B SCREEN NEGATIVE (NEGATIVE)
[2016-08-24 09:58] LABS: ALLENS TEST Pos; BE (BASE EXCESS) -5.2 MEQ/L (0 +/- 2.5); CARBOXYHEMOGLOBIN 0.8 % (0-3); DEVICE NC; HCO3 (ACTUAL BICARBONATE) 21.5 MEQ/L (23-27); HEMOBLOGIN CONTENT 11.8 G/DL (14-18); INSTRUMENT SERIAL # 8083; METHEMOGLOBIN 0.2 % (0-3); O2 CONTENT 15.5 VOL% (18-24); OPERATOR ID 32214; PCO2 (CO2 TENSION) 47 MMHG (35-45); PO2 (O2 TENSION) 72 MMHG (79-93); SAMPLE Arterial; pH 7.28 (7.37-7.43)
[2016-08-25 04:56] LABS: ALLENS TEST Pos; BE (BASE EXCESS) 1.2 MEQ/L (0 +/- 2.5); BIPAP 16/5 cm.H2O; CARBOXYHEMOGLOBIN 0.4 % (0-3); HCO3 (ACTUAL BICARBONATE) 27.3 MEQ/L (23-27); HEMOBLOGIN CONTENT 11.1 G/DL (14-18); INSTRUMENT SERIAL # 8083; METHEMOGLOBIN 0.2 % (0-3); OPERATOR ID 19993; PCO2 (CO2 TENSION) 50 MMHG (35-45); PO2 (O2 TENSION) 59 MMHG (79-93); SAMPLE Arterial; pH 7.35 (7.37-7.43)
[2016-08-25 06:04] LABS: BASOPHILS 0 %; EOSINOPHILS 0 %; HEMATOCRIT 32.2 % (40.0-51.0); HEMOGLOBIN 11.1 g/dL (13.6-17.8); IMMATURE GRANULOCYTES 1.9 %; IMMATURE GRANULOCYTES ABSOLUTE 0.08 10/3/uL (0.0-0.11); LYMPHOCYTES 4.6 %; LYMPHOCYTES ABSOLUTE 0.19 10/3/uL (0.67-4.30); MEAN CORPUS HGB CONC 34.5 g/dL (32.0-36.0); MEAN CORPUSCULAR HEMOGLOB 29.9 pg (26.0-34.0); MEAN CORPUSCULAR VOLUME 86.8 fL (80-100); MEAN PLATELET VOLUME 12.6 fL (9.2-13.0); MONOCYTES 2.7 %; MONOCYTES ABSOLUTE 0.11 10/3/uL (0.21-1.20); NEUTROPHILS 90.8 %; NEUTROPHILS ABSOLUTE 3.76 10/3/uL (2.02-8.40); PLATELET COUNT 180 10/3/uL (150-400); RBC DISTRIBUTION WIDTH 15.7 % (12.0-16.0); RED CELL COUNT 3.71 10/6/uL (4.7-6.1); WHITE BLOOD CELLS 4.1 10/3/uL (4.5-10.5)
[2016-08-25 06:14] LABS: MANUAL DIFF NO %
[2016-08-25 06:40] LABS: A/G RATIO 0.8 (0.7-1.9); ALBUMIN 2.8 G/DL (3.5-5.0); ALKALINE PHOSPHATASE 32 U/L (45-117); CALCIUM, SERUM 7.9 MG/DL (8.5-10.4); CHLORIDE, SERUM 102 MMOL/L (96-112); CO2 (CARBON DIOXIDE) 25 MMOL/L (24-34); GLOBULIN 3.3 G/DL (2.5-4.1); GLUCOSE, SERUM 211 MG/DL (60-99); POTASSIUM, SERUM 4.2 MMOL/L (3.5-5.3); SGOT(AST) 34 U/L (5-40); SGPT(ALT) 30 U/L (5-65); SODIUM, SERUM 137 MMOL/L (135-148); TOTAL BILIRUBIN 0.6 MG/DL (0-1.2); TOTAL PROTEIN 6.1 G/DL (6.0-8.5)
[2016-08-25 06:46] LABS: BUN (BLOOD UREA NITROGEN) 89 MG/DL (6-23); CREATININE 2.42 MG/DL (0.70-1.30); GFR AFRICAN AMERICAN 29 ML/MIN (>=60); GFR NON AFRICAN AMERICAN 25 ML/MIN (>=60); PHOSPHORUS, SERUM 4.1 MG/DL (2.5-4.5)
[2016-08-25 09:07] LABS: HEPATITIS B SURFACE ANTIGEN NON-REACTIVE (NON-REACT)
[2016-08-25 09:12] LABS: HEPATITIS C ANTIBODY NON-REACTIVE (NON-REACT)
[2016-08-25 09:13] LABS: HEPATITIS B CORE AB IGM NON-REACTIVE (NON-REAC); HIV COMBO NON-REACTIVE (NON REAC)
[2016-08-25 09:14] LABS: HEP A ANTIBODY IGM NON-REACTIVE (NON-REACT)
[2016-08-26 07:08] LABS: HEMATOCRIT 33.2 % (40.0-51.0); HEMOGLOBIN 11.5 g/dL (13.6-17.8); MANUAL DIFF YES %; MEAN CORPUS HGB CONC 34.6 g/dL (32.0-36.0); MEAN CORPUSCULAR HEMOGLOB 29.6 pg (26.0-34.0); MEAN CORPUSCULAR VOLUME 85.3 fL (80-100); MEAN PLATELET VOLUME 11.6 fL (9.2-13.0); PLATELET COUNT 192 10/3/uL (150-400); RBC DISTRIBUTION WIDTH 16.1 % (12.0-16.0); RED CELL COUNT 3.89 10/6/uL (4.7-6.1)
[2016-08-26 07:20] LABS: ALBUMIN 2.9 G/DL (3.5-5.0); BUN (BLOOD UREA NITROGEN) 77 MG/DL (6-23); CALCIUM, SERUM 7.9 MG/DL (8.5-10.4); CHLORIDE, SERUM 101 MMOL/L (96-112); CO2 (CARBON DIOXIDE) 27 MMOL/L (24-34); CREATININE 1.94 MG/DL (0.70-1.30); GFR AFRICAN AMERICAN 38 ML/MIN (>=60); GFR NON AFRICAN AMERICAN 33 ML/MIN (>=60); GLUCOSE, SERUM 99 MG/DL (60-99); PHOSPHORUS, SERUM 3.3 MG/DL (2.5-4.5); POTASSIUM, SERUM 3.9 MMOL/L (3.5-5.3); SODIUM, SERUM 139 MMOL/L (135-148)
[2016-08-26 08:32] LABS: BAND NEUTROPHILS 2 %; EOSINOPHILS 1 %; EOSINOPHILS ABSOLUTE (CALC) 0.06 10/3/uL (0.0-0.53); LYMPHOCYTES 13 %; LYMPHOCYTES ABSOLUTE (CALC) 0.78 10/3/uL (0.67-4.30); MONOCYTES 5 %; NEUTROPHILS ABSOLUTE (CALC) 4.86 10/3/uL (2.02-8.40); PLATELET ESTIMATE ADQ (ADEQUATE); SEGMENTED NEUTROPHIL (0) 79 %; TOTAL NUCLEATED CELLS 100
[2016-08-26 08:33] LABS: POLYCHROMASIA 1+ (2-5/OIF) (0-1/OIF); TARGET CELLS OCC (1-2/OIF) (0-1/OIF)
[2016-08-26 08:34] LABS: HELMET CELLS OCC (0-2/OIF); TEARDROP SHAPED RBCS OCC (0-2/OIF)
[2016-08-26 16:48] LABS: PROCALCITONIN 0.16 ng/mL (<0.5)
[2016-08-27 06:24] LABS: ALBUMIN 2.8 G/DL (3.5-5.0); CALCIUM, SERUM 7.8 MG/DL (8.5-10.4); CHLORIDE, SERUM 102 MMOL/L (96-112); CO2 (CARBON DIOXIDE) 29 MMOL/L (24-34); CREATININE 1.63 MG/DL (0.70-1.30); GFR AFRICAN AMERICAN 47 ML/MIN (>=60); GFR NON AFRICAN AMERICAN 40 ML/MIN (>=60); PHOSPHORUS, SERUM 2.8 MG/DL (2.5-4.5); SODIUM, SERUM 140 MMOL/L (135-148)
[2016-08-27 06:25] LABS: BUN (BLOOD UREA NITROGEN) 69 MG/DL (6-23); GLUCOSE, SERUM 149 MG/DL (60-99)
[2016-08-28 06:14] LABS: CALCIUM, SERUM 8.3 MG/DL (8.5-10.4); CHLORIDE, SERUM 104 MMOL/L (96-112); CO2 (CARBON DIOXIDE) 24 MMOL/L (24-34); CREATININE 1.58 MG/DL (0.70-1.30); GFR AFRICAN AMERICAN 49 ML/MIN (>=60); GFR NON AFRICAN AMERICAN 42 ML/MIN (>=60); POTASSIUM, SERUM 4.4 MMOL/L (3.5-5.3); SODIUM, SERUM 141 MMOL/L (135-148)
[2016-08-28 06:15] LABS: BUN (BLOOD UREA NITROGEN) 61 MG/DL (6-23); GLUCOSE, SERUM 118 MG/DL (60-99); PHOSPHORUS, SERUM 1.9 MG/DL (2.5-4.5)
[2016-08-29 06:08] LABS: HEMATOCRIT 30.7 % (40.0-51.0); HEMOGLOBIN 10.5 g/dL (13.6-17.8)
[2016-08-29 10:51] LABS: CHLORIDE, SERUM 106 MMOL/L (96-112); CO2 (CARBON DIOXIDE) 24 MMOL/L (24-34); GFR AFRICAN AMERICAN 48 ML/MIN (>=60); GFR NON AFRICAN AMERICAN 41 ML/MIN (>=60); SODIUM, SERUM 139 MMOL/L (135-148)
[2016-08-29 10:58] LABS: BUN (BLOOD UREA NITROGEN) 52 MG/DL (6-23); GLUCOSE, SERUM 191 MG/DL (60-99); POTASSIUM, SERUM 4.2 MMOL/L (3.5-5.3)
[2016-08-29 13:41] LABS: INTERNATIONAL NORMAL RATI 1.2 UNITS (-); PARTIAL THROMBO TIME 23.7 SEC (22.5-37.2); PROTIME (NOT ORD) 14.9 SEC (12.0-14.5)
[2016-08-30 05:19] LABS: BASOPHILS 0 %; EOSINOPHILS 0 %; HEMATOCRIT 28.2 % (40.0-51.0); HEMOGLOBIN 9.7 g/dL (13.6-17.8); IMMATURE GRANULOCYTES 0.5 %; IMMATURE GRANULOCYTES ABSOLUTE 0.03 10/3/uL (0.0-0.11); LYMPHOCYTES 9.4 %; LYMPHOCYTES ABSOLUTE 0.54 10/3/uL (0.67-4.30); MEAN CORPUS HGB CONC 34.4 g/dL (32.0-36.0); MEAN CORPUSCULAR HEMOGLOB 29.8 pg (26.0-34.0); MEAN CORPUSCULAR VOLUME 86.5 fL (80-100); MEAN PLATELET VOLUME 12.5 fL (9.2-13.0); MONOCYTES 6.8 %; MONOCYTES ABSOLUTE 0.39 10/3/uL (0.21-1.20); NEUTROPHILS 83.3 %; NEUTROPHILS ABSOLUTE 4.79 10/3/uL (2.02-8.40); PLATELET COUNT 150 10/3/uL (150-400); RBC DISTRIBUTION WIDTH 16.2 % (12.0-16.0); RED CELL COUNT 3.26 10/6/uL (4.7-6.1); WHITE BLOOD CELLS 5.8 10/3/uL (4.5-10.5)
[2016-08-30 05:21] LABS: MANUAL DIFF NO %
[2016-08-30 05:30] LABS: CALCIUM, SERUM 7.7 MG/DL (8.5-10.4); CHLORIDE, SERUM 107 MMOL/L (96-112); CO2 (CARBON DIOXIDE) 26 MMOL/L (24-34); CREATININE 1.56 MG/DL (0.70-1.30); GFR AFRICAN AMERICAN 49 ML/MIN (>=60); GFR NON AFRICAN AMERICAN 43 ML/MIN (>=60); SODIUM, SERUM 142 MMOL/L (135-148)
[2016-08-30 05:33] LABS: BUN (BLOOD UREA NITROGEN) 48 MG/DL (6-23); GLUCOSE, SERUM 129 MG/DL (60-99)
[2016-08-30] MEDS ORDERED: SYMBICORT 160/41 INH INH (12:39)
[2016-09-07] MEDS ORDERED: *UNABLE1 (03:03)
[2016-09-07] MEDS ORDERED: VENTOLIN HFA INH (19:01)
[2016-09-07] MEDS ORDERED: X5 PO (19:02)
[2016-09-07] MEDS ORDERED: ALBUTEROL0.083 % INH (19:02)
[2016-09-07] MEDS ORDERED: LIPITOR20 PO (19:02)
[2016-09-07] MEDS ORDERED: NORV10 PO (19:02)
[2016-09-07] MEDS ORDERED: ASAB PO (19:02)
[2016-09-07] MEDS ORDERED: SYMBICORT 160/41 INH INH (19:03)
[2016-09-07] MEDS ORDERED: LOFIB160 PO (19:03)
[2016-09-07] MEDS ORDERED: B121000P IM (19:03)
[2016-09-07] MEDS ORDERED: COREG12 PO (19:03)
[2016-09-07] MEDS ORDERED: MEXITIL 150 MG150 MG PO (19:04)
[2016-09-07] MEDS ORDERED: NORCO1 TA1 PO (19:04)
[2016-09-07] MEDS ORDERED: LEVOTHYROXIN25 MCG PO (19:04)
[2016-09-07] MEDS ORDERED: GLUCOTROL5 PO (19:04)
[2016-09-07] MEDS ORDERED: CENTRUM PO (19:05)
[2016-09-07] MEDS ORDERED: PRILO PO (19:05)
[2016-09-07] MEDS ORDERED: Z100 PO (19:05)
[2016-09-07] MEDS ORDERED: NEUR400 PO (19:05)
[2016-09-18] MEDS ORDERED: ASTELIN (13:02)
[2016-09-18] MEDS ORDERED: BUM1 PO (13:02)
[2016-09-18] MEDS ORDERED: COREG25 PO (13:03)
[2016-09-18] MEDS ORDERED: FLONASE (13:05)
[2017-02-06] MEDS ORDERED: ALBUTEROL5 INH (03:22)
[2017-02-06] MEDS ORDERED: C1 PO ×2 (03:22→13:31)
[2017-02-06] MEDS ORDERED: NORV10 PO ×2 (03:23→13:35)
[2017-02-06] MEDS ORDERED: ASAB PO ×2 (03:23→13:33)
[2017-02-06] MEDS ORDERED: Z100 PO ×2 (03:23→13:35)
[2017-02-06] MEDS ORDERED: X5 PO ×2 (03:23→13:30)
[2017-02-06] MEDS ORDERED: LIPITOR20 PO ×2 (03:24→13:35)
[2017-02-06] MEDS ORDERED: COREG25 PO ×2 (03:24→13:32)
[2017-02-06] MEDS ORDERED: LOFIB160 PO ×2 (03:25→13:33)
[2017-02-06] MEDS ORDERED: B121000P IM ×2 (03:25→13:33)
[2017-02-06] MEDS ORDERED: NEUR400 PO ×2 (03:26→13:36)
[2017-02-06] MEDS ORDERED: GLUCOTROL5 PO ×2 (03:27→13:34)
[2017-02-06] MEDS ORDERED: NORCO1 TA1 PO ×2 (03:35→13:31)
[2017-02-06] MEDS ORDERED: *UNABLE1 (03:54)
[2017-02-06] MEDS ORDERED: MEXITIL 150 MG150 MG PO (13:31)
[2017-02-06] MEDS ORDERED: MULTIVITAMI1 PO (13:33)
[2017-02-06] MEDS ORDERED: PRILO PO (13:34)
[2017-02-06] MEDS ORDERED: ALBUTEROL0.083 % INH (13:35)
[2017-02-06] MEDS ORDERED: BUM1 PO (13:36)
[2017-02-06] MEDS ORDERED: VENTOLIN HFA INH (13:37)
[2017-02-06] MEDS ORDERED: SYN.025B PO (13:37)
[2017-02-12] MEDS ORDERED: DEMA20 PO (12:41)
== END 2016-08-30 13:03 | disposition home health service (06) | DRG 189 ==
LOC: 1SO 12:48
PROVIDERS: Hospitalist; Internal Medicine Nephrology; Nurse Practitioner; Nurse Practitioner Family
PROC: 5A09457 Assistance with Respiratory Ventilation, 24-96 Consecutive Hours, Continuous Positive Airway Pressure (ICD-10-PCS; principal; 2016-08-22)
PROC: 02H633Z Insertion of Infusion Device into Right Atrium, Percutaneous Approach (ICD-10-PCS; 2016-08-24)
PROC: B244ZZ3 Ultrasonography of Right Heart, Intravascular (ICD-10-PCS; 2016-08-24)
PROC: B513ZZZ Fluoroscopy of Right Jugular Veins (ICD-10-PCS; 2016-08-24)
PROC: 5A1D00Z (ICD-10-PCS; 2016-08-24)
PROC: 05PYX3Z Removal of Infusion Device from Upper Vein, External Approach (ICD-10-PCS; 2016-08-28)
DX: J96.21 Acute and chronic respiratory failure with hypoxia (principal); J18.9 Pneumonia, unspecified organism; E87.4 Mixed disorder of acid-base balance; I50.43 Acute on chronic combined systolic (congestive) and diastolic (congestive) heart failure; N18.4 Chronic kidney disease, stage 4 (severe); N17.9 Acute kidney failure, unspecified; I13.0 Hypertensive heart and chronic kidney disease with heart failure and stage 1 through stage 4 chronic kidney disease, or unspecified chronic kidney disease; T82.838A Hemorrhage due to vascular prosthetic devices, implants and grafts, initial encounter; J44.0 Chronic obstructive pulmonary disease with (acute) lower respiratory infection; J44.1 Chronic obstructive pulmonary disease with (acute) exacerbation; E87.1 Hypo-osmolality and hyponatremia; D69.6 Thrombocytopenia, unspecified; E11.22 Type 2 diabetes mellitus with diabetic chronic kidney disease; E87.5 Hyperkalemia; E11.42 Type 2 diabetes mellitus with diabetic polyneuropathy; I49.5 Sick sinus syndrome; J96.22 Acute and chronic respiratory failure with hypercapnia; K21.9 Gastro-esophageal reflux disease without esophagitis; E03.9 Hypothyroidism, unspecified; D63.1 Anemia in chronic kidney disease; I70.0 Atherosclerosis of aorta; F41.1 Generalized anxiety disorder; Y83.8 Other surgical procedures as the cause of abnormal reaction of the patient, or of later complication, without mention of misadventure at the time of the procedure; E78.5 Hyperlipidemia, unspecified; M10.9 Gout, unspecified; I25.10 Atherosclerotic heart disease of native coronary artery without angina pectoris; N40.0 Benign prostatic hyperplasia without lower urinary tract symptoms; E87.70 Fluid overload, unspecified; Z91.040 Latex allergy status; Z99.2 Dependence on renal dialysis; Z79.82 Long term (current) use of aspirin; Z79.84 Long term (current) use of oral hypoglycemic drugs; Z79.891 Long term (current) use of opiate analgesic; Z79.899 Other long term (current) drug therapy; Z87.01 Personal history of pneumonia (recurrent); Z87.891 Personal history of nicotine dependence; Z95.1 Presence of aortocoronary bypass graft; Z95.810 Presence of automatic (implantable) cardiac defibrillator; Z98.61 Coronary angioplasty status
CPT/HCPCS: 36558; 36589; 36600; 71010; 76000; 76775; 76937; 77001; 80048; 80053; 80069; 80074; 80076; 81001; 82607; 82805; 82962; 83036; 83605; 83735; 83880; 84145; 84443; 84484; 85014; 85018; 85025; 85049; 85610; 85730; 87040; 87205; 87389; 87449; 87804; 93005; 93288; 93975; 94640; 94660; 97110-GP; 97116-GP; 97161-GP; 99152; A9270-GY; C1750; C1769; C8929; G0257; G0463; J0610; J1956; J2250; J2405; J2920; J2930; J3010; Q9957